=== PATIENT | female | born 1955 | race Caucasian/White ===

== ENCOUNTER 2018-12-28 09:03 | Day surgery (SDC) | payer OTHER ==
[~2018-12-28 09:03] MED LIST: ACETAMINOPHEN 1,000 MG/100 ML BTL IVPB ONE; CEFAZOLIN 2 Gram 2 GM/50 ML BAG IVPB ONE; MECLIZINE 25 MG TABLET PO ONE
[2018-12-28] MEDS ORDERED: FENTANYL PF 100MCG/2ML VIAL IV ONE (09:04)
[2018-12-28] MEDS ORDERED: KETOROLAC 30 MG/ML VIAL IVP ONE (09:04)
[2018-12-28] MEDS ORDERED: LIDOCAINE 2% MDV (20MG/ML) 20ML VIAL IV ONE (09:04)
[2018-12-28] MEDS ORDERED: MIDAZOLAM HCL 2MG/2ML VIAL IV ONE (09:04)
[2018-12-28] MEDS ORDERED: SEVOFLURANE 250 ML INH ONE (09:04)
[2018-12-28] MEDS ORDERED: PROPOFOL 10 MG/ML VIAL IV ONE (09:04)
[2018-12-28] MEDS ORDERED: DEXAMETHASONE 4 MG/ML 1ML VIAL IVP ONE (09:04)
[2018-12-28] MEDS ORDERED: MORPHINE SULFATE (PACU ONLY) 4 MG/ML VIAL IVP ONE (09:04)
[2018-12-28] MEDS ORDERED: ONDANSETRON HCL IV 4 MG/2 ML VIAL IVP ONE (09:04)
[2018-12-28] MEDS ORDERED: RINGERS SOLUTION,LACTATED 1,000 ML IV ONE ×2 (09:52→11:41)
[2018-12-28] MEDS ORDERED: BUPIVACAINE 0.5% W/EPI MPF 30 ML VIAL SQ ONE (11:41)
[2018-12-28] MEDS ORDERED: METHYLPREDNISOLONE 40MG/VIAL IU ONE (11:56)
[2018-12-28] MEDS ORDERED: MORPHINE SULFATE PF 10MG/10ML *10ML VIAL IU ONE (11:57)
--- NOTE | 2018-12-29 09:41 | Operative Note ---
DATE OF SURGERY: 12/28/2018 PREOPERATIVE DIAGNOSIS: Internal derangement of the right knee. POSTOPERATIVE DIAGNOSES: 1. Grade 3 chondromalacia of the patella. 2. Diffuse synovitis. 3. Large chondral lesion of the medial femoral condyle. 4. Complex degenerative tear involving the lateral and posterior horn of the lateral meniscus. OPERATION: 1. Right knee arthroscopy with partial lateral meniscectomy. 2. Right knee arthroscopy with complete synovectomy. 3. Right knee arthroscopy with chondroplasty of the medial femoral condyle and patella. STAFF SURGEON: Brett Paredes MD ANESTHESIA: General. PREPARATION: Chloraprep. INDIVIDUAL CONSIDERATIONS: None. PROCEDURE: The patient was taken to the operating room and placed supine on the operating room table. The patient had a successful induction with general anesthetic. The right lower extremity was prepped and draped in the usual fashion. Examination under anesthesia showed normal ligaments. The patient had a superolateral inflow cannula placed. Skin was infiltrated with 0.5% Marcaine with epinephrine prior. A clear effusion was drained. The knee was inflated with normal saline. An inferomedial and an inferolateral portal were made in a similar fashion. The arthroscope was introduced through the inferolateral portal up into the pouch. Patellofemoral compartment showed diffuse synovitis in the pouch and both gutters which was debrided with a shaver. Grade 3 changes were seen in the patella. Nothing on the notch. Medially, unfortunately, she had a large chondral defect of the medial femoral condyle centered about 45 degrees, which was a large unstable flap that gave the appearance of maybe a size of 2 adjacent quarters. The unstable cartilage was debrided out. There was a small amount of cartilage at the base. He meniscus was thinned in the back but otherwise intact. Tibial plateau looked good. In the notch, the cruciates were normal. Lateral compartment structures showed a complex degenerative tear involving the anterolateral and posterior horn of the lateral meniscus which was debrided back to a stable rim with a shaver. Articular cartilage looked tood. After irrigation to remove floating debris, portals were closed with angy, and 20 mL of 0.25% rafia Marcaine along with 4 mg of morphine and 40 mg of Depo- Medrol were injected into the knee. A sterile bulky compressive dressing was applied. The patient tolerated procedure well. Needle and sponge counts were correct. Estimated blood loss was minimal. She was back to recovery in good condition. There were no complications. HYUN
== END 2018-12-28 12:43 | disposition home or self-care (01) ==
LOC: SUR 09:03
PROVIDERS: ATTEND Orthopaedic Surgery
DX: S83.271A Complex tear of lateral meniscus, current injury, right knee, initial encounter (principal); M24.10 Other articular cartilage disorders, unspecified site; M65.9 Synovitis and tenosynovitis, unspecified; M94.20 Chondromalacia, unspecified site; F17.210 Nicotine dependence, cigarettes, uncomplicated
CPT/HCPCS: 29881; 29875; 01400; J1885; J2405; J3010; J0690; J2270; J1030; J7120